=== PATIENT | female | born 1995 ===

== ENCOUNTER 2023-08-10 12:02 | Day surgery (SDC) | payer OTHER ==
[~2023-08-10] VITALS: Ht 162.6 cm; Wt 99.2 kg
[2023-08-10] MEDS ORDERED: ZYRTEC10 M2 PO (12:28)
--- NOTE | 2023-08-10 14:23 | NUR ---
08/10/23 1423 Hafsa Esquivel SUKHDEV-AREA PREPPED BY [email or web address], ABDOMINAL AREA PREPPED BY [email or web address]. 20ML OF ROPIVACAINE 0.5% MIXED AND VERIFIED WITH 0.1ML OF EPI (1MG/ML) TO MAKE ROPIVACAINE 0.5% WITH EPI 1:200,000 FOR INJECTION AT OPSITE BY DR HUTTON.
[2023-08-10 15:31] VITALS: BP 125/79
--- NOTE | 2023-08-10 16:06 | NUR ---
08/10/23 1606 YONG MOREL PT VOIDED URINE WITH SOME BURNING PAIN
== END 2023-08-10 16:07 | disposition home or self-care (01) ==
LOC: ORSCSDS 12:02
PROVIDERS: Obstetrics & Gynecology
PROC: 0UPD7HZ Removal of Contraceptive Device from Uterus and Cervix, Via Natural or Artificial Opening (ICD-10-PCS; principal; 2023-08-10 13:15)
PROC: 0UT74ZZ Resection of Bilateral Fallopian Tubes, Percutaneous Endoscopic Approach (ICD-10-PCS; principal; 2023-08-10 13:15)
DX: Z30.2 Encounter for sterilization (principal); Z30.432 Encounter for removal of intrauterine contraceptive device; J45.909 Unspecified asthma, uncomplicated; E66.9 Obesity, unspecified; Z68.36 Body mass index [BMI] 36.0-36.9, adult; Z79.899 Other long term (current) drug therapy
CPT/HCPCS: 88302; A9270; J0171; J1100; J2250; J2405; J2704; J2795; J3010